=== PATIENT | male | born 1995 | race Caucasian/White ===

== ENCOUNTER 2021-10-11 13:19 | Emergency (ER) | payer SELFPAY ==
[~2021-10-11] VITALS: Ht 182.9 cm; Wt 120.5 kg
[2021-10-11] MEDS ORDERED: IBUPROFEN 800 MG TABLET PO ONE (14:30)
[2021-10-11] MEDS ORDERED: PROPARACAINE HCL 0.5% 15 ML OPHTHALMIC SOLUTION OS ONE (14:30)
[2021-10-11 15:12] VITALS: BP 158/93
[2021-10-11] MEDS ORDERED: OFLO35OS OD (15:12)
== END 2021-10-11 15:23 | disposition home or self-care (01) ==
LOC: EMS 13:19
DX: S05.01XA Injury of conjunctiva and corneal abrasion without foreign body, right eye, initial encounter (principal); X58.XXXA Exposure to other specified factors, initial encounter; Y93.89 Activity, other specified; Y92.89 Other specified places as the place of occurrence of the external cause; Y99.8 Other external cause status
CPT/HCPCS: 99283